=== PATIENT | male | born 1960 | race Caucasian/White ===

== ENCOUNTER 2019-03-20 15:26 | Outpatient (RCR) | payer MEDICAID, SELFPAY ==
[2019-03-20 15:58] VITALS: BP 148/73; PULSE 88; RESP 16; TEMP 36.7; BMI 26.6
--- NOTE | 2019-03-20 17:34 | HBO.CON.PC_ITS ---
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 Current Visit: Yes Code(s): I73.1 - Thromboangiitis obliterans [Buerger's disease] Comment: fingers and toes (3) Raynaud's disease Status: Chronic Current Visit: Yes Qualifiers: Raynaud?s-associated gangrene presence: with gangrene Qualified Code(s): I73.01 - Raynaud's syndrome with gangrene Code(s): I73.00 - Raynaud's syndrome without gangrene Comment: dry gangrene right great toe (4) Former cigarette smoker Status: Chronic Current Visit: Yes Code(s): Z87.891 - Personal history of nicotine dependence (5) Chronic osteomyelitis of toe of right foot Status: Chronic Current Visit: Yes Code(s): M86.671 - Other chronic osteomyelitis, right ankle and foot Comment: right great toe (6) Non-healing amputation site Status: Chronic Current Visit: Yes Code(s): T87.89 - Other complications of amputation stump Comment: left lateral foot with fat layer exposed (7) Hyperlipidemia Status: Chronic Current Visit: Yes Qualifiers: Hyperlipidemia type: unspecified Qualified Code(s): E78.5 - Hyperlipidemia, unspecified Code(s): E78.5 - Hyperlipidemia, unspecified History of Present Illness Date of Service: 03/20/19 Presenting Chief Complaint: Evaluation for HBO treatment for chronic osteomyelit is of right great toe The patient is a 58 year old male who [facility] evaluate the possibility of initiating hyperbaric oxygen therapy for treatment of chronic refractory osteomyelitis of his right great toe and nonhealing wound at surgical amputation site of left lateral foot with fat layer exposed with measurements documented below which have been present for over 1 year. Hector has a history of rheumatoid arthritis for which he was on chronic prednisone for 10 years with Raynaud's disease that developed Buerger's disease approximately 1 year ago. He developed cyanosis and pain of his finger tips and toes and ultimately developed gangrene and was hospitalized at [facility] in March of last year. He was treated with medication and went to a custodial center after discharge for physical rehabilitation and developed infection of his left foot which he underwent amputation of his 4th and 5th digits and lateral aspect of his left foot May 2018 due to osteomyelitis and gangrene. He also had surgical debridement of his right great toe per his report. He was treated with IV antibiotics for 6 weeks in June 2018 and osteomyelitis remained stable but recent xray showed osteomyelitis progressing. Dr. Quinones did his surgery. He continues to get wound care regularly every 1-3 weeks with Dyana Palmer CNP at [facility]. He is currently using Dakon's solution and betadine to his right great toe and A and D ointment to his left lateral foot. Additional records are unavailable for review at this time regarding the details of his wound cultures or surgery but have been requested. He reports that he has not been on any recent antibiotics orally or IV. He has had EKG and vascular testing last year as well as chest xray and CT scan. He believes that his last labs were checked in November. He is otherwise in good health and has a 30 pack year smoking history but quit last year when he was hospitalized. He was being treated with Rituxan for his rheumatoid arthritis but has not had any recent treatments due to the infection in his right great toe. He does not have any implanted devices, hearing aids, prosthetics, AICD. He does not have any history of COPD or asthma or chronic bronchitis or previous pneumothorax. 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) Chronic osteomyelitis of toe of right foot (Chronic) right great toe Non-healing amputation site (Chronic) left lateral foot with fat layer exposed Hyperlipidemia (Chronic) Allergies/Adverse Reactions: Allergies No Known Allergies Allergy (Verified 03/20/19 17:38) Home Medications: Ambulatory Orders Medication Instructions Recorded Acetaminophen 325 mg PO PRN PRN 03/20/19 Amlodipine [Norvasc] 5 mg PO DAILY 03/20/19 Aspirin 81 mg PO DAILY 03/20/19 Atorvastatin Calcium [Lipitor] 10 mg PO QHS 03/20/19 Cholecalciferol (VIT D3) [Vitamin 1,000 unit PO DAILY 03/20/19 D] Gabapentin [Neurontin] 400 mg PO DAILY 03/20/19 Melatonin 3 mg PO QHS 03/20/19 Metoprolol Tartrate [Lopressor 12.5 mg PO DAILY 03/20/19 (Beta Yolis)] NIFEdipine [Procardia XL] 90 mg PO DAILY 03/20/19 Nitroglycerin Oint [Nitrol, 1 inch TD BID 03/20/19 Nitrobid] Omeprazole 20 mg PO DAILY 03/20/19 Prednisone 10 mg PO DAILY 03/20/19 Paternal Family History: Cancer Lives: With Family Smoking Status: Former smoker Tobacco Use: Non-smoker Alcohol: Occasional Drugs: None Review of Systems Constitutional: Denies: Chills, Fever, Weight Change Eyes: Denies: Pain, Vision Change HEENT: Denies: Difficulty Hearing, Difficulty Swallowing, Sinus Congestion Cardiovascular: Denies: Chest Pain, Palpitations Respiratory: Denies: Cough, Shortness of Breath Gastrointestinal: Denies: Diarrhea, Nausea, Vomiting Genitourinary: Denies: Dysuria, Hematuria Musculoskeletal: Reports: Joint Pain, Joint swelling Skin: Reports: Wounds Neurological: Reports: Numbness, Tingling Psychiatric: Denies: Anxiety, Depression Endocrine: Denies: Heat/ Cold Intolerance, Polydipsia, Polyuria Hematologic/ Lymphatic: Denies: Easy Bruising, Easy Bleeding - Physical Exam Vital Signs Temp Pulse Resp BP 98.0 F 88 16 148/73 H 03/20/19 15:58 03/20/19 15:58 03/20/19 15:58 03/20/19 15:58 General: Alert, Oriented x3, Cooperative, No apparent distress HEENT: Atraumatic, PERRLA, EOMI, Normocephalic, TM's Clear, EAC Clear Oral: Moist Mucosa, No Gingival or Mucosal Lesions/ Ulcerations Neck: Supple, No JVD, Negative Carotid Bruits Lungs: Clear to auscultation, Normal air movement, No rhonchi, No wheeze, No rales Cardiovascular: Regular rate, Regular Rhythm Abdomen: Bowel Sounds Present, Soft, Non Tender, Non-Distended, No Hepato- splenomegaly, Obese Extremities: No edema, No Calf Tenderness, Cool, Diminished Peripheral Pulses Skin: Ulcer/ Wound - dry gangrene tip of right great toe, fat layer exposed left lateral foot Wound Measurements and Assessment WC - Nurse 1 - General Ulcer Measurement Start: 03/20/19 15:43 Freq: Status: Active Protocol: Activity Type Activity Date Activity User E-Sign Co-Sign Detail Recorded Client Recorded Date Recorded By Document 03/20/19 16:19 MW [id number] 03/20/19 16:21 MW 03/20/19 16:19 Wound Center Nurse 1 [Ulcer Assessment] #2 left lateral foot -Combined with other wound No -Current Size (cm) - Length 2.0 -Current Size (cm) - Width 0.4 -Current Size (cm) - Depth 0.2 -Total Square Cm 0.80 -Date of Last Picture (Recall this 03/20/19 field) -Photo Taken Yes -Epithelialization None Present -Tunneling No -Undermining/Tunneling No -Circular Undermining No -Exudate Amt None Present -Wound Margin Flat & Intact -Granulation Amt Small (1-33%) -Granulation Quality Pale -Slough/Fibrin Yes -Necrosis Amt Medium (34-66%) -Necrotic Tissue Type Adherent Slough -Structure Exposed N/A -Texture (Beatrice-wound Skin Appearance) Assessed Scarring -Moisture (Beatrice-wound Skin Appearance Assessed ) Dry/Scaly -Color (Beatrice-wound Skin Appearance) No Abnormality Assessed -Temperature (Beatrice-wound Skin No Abnormality Appearance) (Pt Warm) -Tenderness on Palpation (Beatrice-wound No Skin Appearance) -Ulcer Cleansing Not Cleansed -Foul Odor after Cleansing No #1 right great toe -Combined with other wound No -Current Size (cm) - Length 3.2 -Current Size (cm) - Width 0.8 -Current Size (cm) - Depth 0.1 -Total Square Cm 2.56 -Date of Last Picture (Recall this 03/20/19 field) -Photo Taken Yes -Epithelialization None Present -Tunneling No -Undermining/Tunneling No -Circular Undermining No -Exudate Amt None Present -Wound Margin Flat & Intact -Granulation Amt None Present (0 %) -Granulation Quality N/A -Slough/Fibrin Yes -Necrosis Amt Large (67-100%) -Necrotic Tissue Type Eschar -Texture (Beatrice-wound Skin Appearance) No Abnormality Assessed -Moisture (Beatrice-wound Skin Appearance No Abnormality ) Dry/Scaly -Color (Beatrice-wound Skin Appearance) No Abnormality Assessed -Temperature (Beatrice-wound Skin No Abnormality Appearance) (Pt Warm) -Tenderness on Palpation (Beatrice-wound Yes Skin Appearance) -Ulcer Cleansing Not Cleansed -Foul Odor after Cleansing No [Edema Assessment] -Lower Limb Edema Present Yes -Right Calf (cm) 36.0 -Right Ankle (cm) 22.6 -Left Calf (cm) 35.5 -Point of Measurement (cm from the 23.0 medial instep) WC - Nurse 2 - General Ulcer CM Notes Start: 03/20/19 15:43 Freq: Status: Active Protocol: Activity Type Activity Date Activity User E-Sign Co-Sign Detail Recorded Client Recorded Date Recorded By Document 03/20/19 16:33 DV [id number] 03/20/19 16:41 DV 03/20/19 16:33 Wound Center Nurse 2 [Procedure/Treatment] #2 left lateral foot -Time 16:34 -Correct Patient Yes -Correct Side, Site, Position Yes -Correct Procedure No -Procedure Performed No -Wound/Ulcer Outcome Not Healed #1 right great toe -Time 16:35 -Correct Patient Yes -Correct Side, Site, Position Yes -Correct Procedure No -Procedure Performed No -Wound/Ulcer Outcome Not Healed [See Physician Procedure note for Specifics] Pain Scale: 0-10 Numeric [Pain] -Is Patient Pain Free? 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 Hyperbaric Oxygen Therapy would be an essential adjunct in the resolution and treatment of his chronic osteomyelitis that is progressing based on recent xray from 01/22/2019. This patient has sufficient physiologic and psychological stamina to undergo the rigors of hyperbaric oxygen therapy. As such, I recommend the following: Hyperbaric Oxygen Treatments at 2.0 MALATHI in 100% Oxygen for 90 minutes per treatment, for 30 treatments, with possible addition of 10 treatments for a total of 40 treatments if improving. I have discussed the possible benefits of hyperbaric oxygen therapy with this patient. I have also presented and described the risks, including: air gas embolism, pneumothorax, central nervous system and pulmonary oxygen toxicity, flash pulmonary edema, hypoglycemia, reversible visual refractive changes, ear and sinus radha-trauma, and confinement anxiety. The patient has verbalized understanding of these risks, and is still wanting to undergo hyperbaric oxygen therapy. The patient understands the significant time and transportation commitment involved in daily treatments of up to two hours duration and has stated that they are willing to commit to this therapy. Additional records regarding his treatment have been requested and chest xray, EKG and updated labs have been ordered. I also discussed that treatment with antibiotics will likely be recommended and initiated once his records are received and would be an important part of treatment as well and he agrees with this plan. - HBOT Diagnosis Chronic Refractory Osteomyelitis (730.1) Non Healing Surgical Wound (998.83) Xray right great toe 01/22/19 shows erosion of right great toe terminal tuft, consistent with early osteomyelitis. Erosion of right great toe distal to this taht is chronic and unchanged from 10/23/18.
== END 2019-04-03 23:59 ==
LOC: WC 15:26
PROVIDERS: Visit Provider Family Medicine
DX: M86.671 Other chronic osteomyelitis, right ankle and foot (principal); Z87.891 Personal history of nicotine dependence; M06.9 Rheumatoid arthritis, unspecified; E78.5 Hyperlipidemia, unspecified; T87.89 Other complications of amputation stump; Y83.8 Other surgical procedures as the cause of abnormal reaction of the patient, or of later complication, without mention of misadventure at the time of the procedure; I73.00 Raynaud's syndrome without gangrene; I73.1 Thromboangiitis obliterans [Buerger's disease]; Z79.52 Long term (current) use of systemic steroids; L97.522 Non-pressure chronic ulcer of other part of left foot with fat layer exposed
CPT/HCPCS: 99204; G0463